=== PATIENT | male | born 1975 | race American Indian/Alaskan Native ===

== ENCOUNTER 2018-01-06 11:59 | Inpatient (IN) | payer OTHER ==
[2018-01-06] MEDS ORDERED: APRESOLINE ONE (12:28)
--- NOTE | 2018-01-06 12:31 | Cat Scan Report ---
CT scan of head without IV contrast: History: Neural deficit. Stroke protocol. Findings: Ventricles are midline in location. Normal in size. 3 mm focal area of low attenuation left basal ganglia. Ill-defined areas of low attenuation right posterior parietal region. 2 cm focal area of low attenuation right cerebellum. No evidence of hemorrhage. No extra-axial fluid collection. Impression: Focal areas of low attenuation as detailed above probably suggestive acute/subacute ischemia. No previous studies available for comparison. Recommend MRI scan for further evaluation. ER doctor, was informed of the findings at 12:25 PM on 01/06/18. [id number]
[2018-01-06 12:34] LABS: Basophils # (Auto) 0.1 K/mm3 (0.0-0.1); Basophils % (Auto) 1.1 % (0.0-1.8); Eosinophils # (Auto) 0.2 K/mm3 (0.0-0.4); Hematocrit 49.7 % (35.5-45.6); Hemoglobin 16.3 gm/dl (11.8-15.2); Lymphocytes # (Auto) 1.5 K/mm3 (1.2-5.4); Lymphocytes % (Auto) 26.3 % (13.4-35.0); Mean Corpuscular HGB Conc 33 % (32-34); Mean Corpuscular Hemoglobin 28 pg (28-32); Mean Corpuscular Volume 86 fl (84-94); Monocytes # (Auto) 0.4 K/mm3 (0.0-0.8); Monocytes % (Auto) 6.5 % (0.0-7.3); Platelet Count 239 K/mm3 (140-440); Red Blood Count 5.79 M/mm3 (3.65-5.03); Red Cell Distribution Width 13.4 % (13.2-15.2)
[2018-01-06] MEDS ORDERED: APRESOLINE IV ONE (12:42)
[2018-01-06 12:44] LABS: INR 0.84 (0.87-1.13)
[2018-01-06 12:45] LABS: BUN/Creatinine Ratio 9; Blood Urea Nitrogen 15 mg/dL (9-20); Calcium 9.2 mg/dL (8.4-10.2); Hemolysis Index 6; Partial Thromboplastin Time 25.7 Sec. (24.2-36.6)
--- NOTE | 2018-01-06 13:05 | Emergency Department Report ---
ED Neuro Deficit HPI - General Chief Complaint: Neuro Symptoms/Deficit Stated Complaint: NEURO SYMPTOMS Time Seen by Provider: 01/06/18 12:49 Source: patient Mode of arrival: Ambulatory Limitations: No Limitations - History of Present Illness Initial Comments: PT. CAME BACK FROM WORK AROUND 2 AM AND WENT TO SLEEP WAS NOT SEEN BY ANYONE AT HOME. HE WOKE UP THIS AM AND WAS BUMPING INTO THINGS ON THE LEFT SIDE AND HE COULD NOT SEE OUT OF THE LEFT EYE. -: Gradual Location: ataxia History of same: No Place: home Severity: moderate Improves With: none Worsens With: none On Anticoagulants: No (SUPPOSED TO BE OM PLAVIX AND ELIQUIS WHICH HE NOT FILLED FOR A MTH) Context: gradual onset Associated Symptoms: denies other symptoms - Related Data Allergies/Adverse Reactions: Allergies Allergy/AdvReac Type Severity Reaction Status Date / Time No Known Allergies Allergy Verified 01/06/18 12:34 ED Review of Systems ROS: Stated complaint: NEURO SYMPTOMS Other details as noted in HPI Comment: All other systems reviewed and negative ED Past Medical Hx - Past Medical History Previous Medical History?: Yes Hx Hypertension: Yes Hx CVA: Yes (TIA) Hx Heart Attack/AMI: Yes Hx Diabetes: Yes Additional medical history: CAD. BLOOD CLOT IN HIS LUNGS - Surgical History Past Surgical History?: Yes Hx Coronary Stent: Yes - Social History Smoking Status: Former Smoker Substance Use Type: Alcohol, Marijuana, Non Opiate Pain, Prescribed ED Neuro Physical Exam - General Limitations: No Limitations General appearance: alert, in no apparent distress - Head Head exam: Present: atraumatic, normocephalic - Eye Eye exam: Present: normal appearance - ENT ENT exam: Present: mucous membranes moist - Neck Neck exam: Present: normal inspection - Respiratory Respiratory exam: Present: normal lung sounds bilaterally. Absent: respiratory distress - Cardiovascular Cardiovascular Exam: Present: regular rate, normal rhythm. Absent: systolic murmur, diastolic murmur, rubs, gallop - GI/Abdominal GI/Abdominal exam: Present: soft, normal bowel sounds. Absent: tenderness - Rectal Rectal exam: Present: deferred - Extremities Exam Extremities exam: Present: normal inspection, full ROM - Back Exam Back exam: Present: normal inspection, full ROM - NIHSS Assessment Interval: Baseline 1a. Level of Consciousness: alert 1b. LOC Questions: answers correctly 1c. LOC Commands: performs tasks correctly 2. Best Gaze: normal 3. Visual: complete hemianopia 4. Facial Palsy: normal symmetrical movement 5b. Motor Arm Right: no drift 5a. Motor Arm Left: no drift 6a. Motor Leg Left: no drift 6b. Motor Leg Right: no drift 7. Limb Ataxia: absent 8. Sensory: normal 9. Best Language: no aphasia 10. Dysarthria: normal 11. Extinction/Inattention: no abnormality Total Score: 2 Stroke Severity: Minor Stroke - Psychiatric Psychiatric exam: Present: normal affect, normal mood - Skin Skin exam: Present: warm, dry, intact, normal color. Absent: rash ED Course Vital Signs 01/06/18 01/06/18 01/06/18 12:03 12:19 12:26 Temperature 98.5 F Pulse Rate 94 H 100 H Respiratory 18 Rate Blood Pressure 178/133 190/151 O2 Sat by Pulse 98 Oximetry 01/06/18 01/06/18 01/06/18 12:31 12:45 12:56 Temperature Pulse Rate 100 H 85 Respiratory 11 L 23 18 Rate Blood Pressure 190/151 187/136 O2 Sat by Pulse 97 94 Oximetry 01/06/18 01/06/18 01/06/18 13:01 13:15 13:30 Temperature Pulse Rate 107 H 105 H 97 H Respiratory 19 21 21 Rate Blood Pressure 169/123 168/139 164/119 O2 Sat by Pulse 97 97 Oximetry 01/06/18 01/06/18 01/06/18 13:45 14:00 14:15 Temperature Pulse Rate 104 H 96 H 99 H Respiratory 17 10 L 21 Rate Blood Pressure 157/117 155/114 150/108 O2 Sat by Pulse 96 96 95 Oximetry 01/06/18 01/06/18 14:30 14:45 Temperature Pulse Rate 103 H 106 H Respiratory 21 21 Rate Blood Pressure 159/116 164/120 O2 Sat by Pulse 95 96 Oximetry - Lab Data Result diagrams: 01/06/18 12:26 01/06/18 12:26 Lab Results 01/06/18 01/06/18 01/06/18 Range/Units 12:26 12:26 12:26 WBC 5.6 (4.5-11.0) K/mm3 RBC 5.79 H (3.65-5.03) M/mm3 Hgb 16.3 H (11.8-15.2) gm/dl Hct 49.7 H (35.5-45.6) % MCV 86 (84-94) fl MCH 28 (28-32) pg MCHC 33 (32-34) % RDW 13.4 (13.2-15.2) % Plt Count 239 (140-440) K/mm3 Lymph % (Auto) 26.3 (13.4-35.0) % [place] % (Auto) 6.5 (0.0-7.3) % Eos % (Auto) 4.0 (0.0-4.3) % Baso % (Auto) 1.1 (0.0-1.8) % Lymph # 1.5 (1.2-5.4) K/mm3 [place] # 0.4 (0.0-0.8) K/mm3 Eos # 0.2 (0.0-0.4) K/mm3 Baso # 0.1 (0.0-0.1) K/mm3 Seg Neutrophils % 62.1 (40.0-70.0) % Seg Neutrophils # 3.5 (1.8-7.7) K/mm3 PT 11.9 L (12.2-14.9) Sec. INR 0.84 L (0.87-1.13) APTT 25.7 (24.2-36.6) Sec. Thrombin Time (15.1-19.6) Sec. Sodium 139 (137-145) mmol/L Potassium 4.3 (3.6-5.0) mmol/L Chloride 99.2 (98-107) mmol/L Carbon Dioxide 25 (22-30) mmol/L Anion Gap 19 mmol/L BUN 15 (9-20) mg/dL Creatinine 1.6 H (0.8-1.5) mg/dL Estimated GFR 48 ml/min BUN/Creatinine Ratio 9 % Glucose 288 H (75-100) mg/dL Calcium 9.2 (8.4-10.2) mg/dL Troponin T < 0.010 (0.00-0.029) ng/mL Urine Color (Yellow) Urine Turbidity (Clear) Urine pH (5.0-7.0) Ur Specific [place] (1.003-1.030) Urine Protein (Negative) mg/dL Urine Glucose (UA) (Negative) mg/dL Urine Ketones (Negative) mg/dL Urine Blood (Negative) Urine Nitrite (Negative) Urine Bilirubin (Negative) Urine Urobilinogen (<2.0) mg/dL Ur Leukocyte Esterase (Negative) Urine WBC (Auto) (0.0-6.0) /HPF Urine RBC (Auto) (0.0-6.0) /HPF Urine Opiates Screen Urine Methadone Screen Ur Barbiturates Screen Ur Phencyclidine Scrn Ur Amphetamines Screen U Benzodiazepines Scrn Urine Cocaine Screen U Marijuana (THC) Screen Drugs of Abuse Note 01/06/18 01/06/18 01/06/18 Range/Units 12:26 13:12 13:12 WBC (4.5-11.0) K/mm3 RBC (3.65-5.03) M/mm3 Hgb (11.8-15.2) gm/dl Hct (35.5-45.6) % MCV (84-94) fl MCH (28-32) pg MCHC (32-34) % RDW (13.2-15.2) % Plt Count (140-440) K/mm3 Lymph % (Auto) (13.4-35.0) % [place] % (Auto) (0.0-7.3) % Eos % (Auto) (0.0-4.3) % Baso % (Auto) (0.0-1.8) % Lymph # (1.2-5.4) K/mm3 [place] # (0.0-0.8) K/mm3 Eos # (0.0-0.4) K/mm3 Baso # (0.0-0.1) K/mm3 Seg Neutrophils % (40.0-70.0) % Seg Neutrophils # (1.8-7.7) K/mm3 PT (12.2-14.9) Sec. INR (0.87-1.13) APTT (24.2-36.6) Sec. Thrombin Time 15.6 (15.1-19.6) Sec. Sodium (137-145) mmol/L Potassium (3.6-5.0) mmol/L Chloride (98-107) mmol/L Carbon Dioxide (22-30) mmol/L Anion Gap mmol/L BUN (9-20) mg/dL Creatinine (0.8-1.5) mg/dL Estimated GFR ml/min BUN/Creatinine Ratio % Glucose (75-100) mg/dL Calcium (8.4-10.2) mg/dL Troponin T (0.00-0.029) ng/mL Urine Color Yellow (Yellow) Urine Turbidity Clear (Clear) Urine pH 5.0 (5.0-7.0) Ur Specific [place] 1.014 (1.003-1.030) Urine Protein 100 mg/dl (Negative) mg/dL Urine Glucose (UA) >=500 (Negative) mg/dL Urine Ketones Neg (Negative) mg/dL Urine Blood Sm (Negative) Urine Nitrite Neg (Negative) Urine Bilirubin Neg (Negative) Urine Urobilinogen < 2.0 (<2.0) mg/dL Ur Leukocyte Esterase Neg (Negative) Urine WBC (Auto) < 1.0 (0.0-6.0) /HPF Urine RBC (Auto) 1.0 (0.0-6.0) /HPF Urine Opiates Screen Presumptive negative Urine Methadone Screen Presumptive negative Ur Barbiturates Screen Presumptive negative Ur Phencyclidine Scrn Presumptive negative Ur Amphetamines Screen Presumptive negative U Benzodiazepines Scrn Presumptive negative Urine Cocaine Screen Presumptive negative U Marijuana (THC) Screen Presumptive positive Drugs of Abuse Note Disclamer - EKG Data -: EKG Interpreted by Ms EKG shows normal: sinus rhythm (SINUS TACHYCARDIA RATE OF 105), axis (NORMAL), intervals (NORMAL), QRS complexes (NORMAL), ST-T waves (NORMAL) - Radiology Data Radiology results: report reviewed - Medical Decision Making I SPOKE TO tELENEUROLOGY dR Hale WHO ALSO LOOKED AT THE CT HEAD IMAGES AND GIVEN THE TIME OF ONSET FELT PATIENT IS NOT A CANDIDATE FOR TPA AND SAID CAN BE ADMITTED FOR STROKE WORKUP AND MRI HEAD. I SPOKE TO DR OMNTANEZ WHO ACCEPTED THE PATIENT FOR ADMISSION Critical care attestation.: If time is entered above; I have spent that time in minutes in the direct care of this critically ill patient, excluding procedure time. ED Disposition Clinical Impression: CVA (cerebral vascular accident) Disposition: -09 OP ADMIT IP TO THIS HOSP Is pt being admited?: Yes Does the pt Need Aspirin: Yes Condition: Stable
[2018-01-06 13:27] LABS: Bilirubin,Urine NEG (Negative); Blood,Urine SM (Negative); Color,Urine Yellow (Yellow); Urobilinogen,Urine < 2.0 mg/dL (<2.0); WBC,Urine < 1.0 /HPF (0.0-6.0)
[2018-01-06 13:35] LABS: Amphetamine Screen,Urine PRESUMPTIVE NEGATIVE; Benzodiazepines Screen,Urine PRESUMPTIVE NEGATIVE; Cocaine Screen,Urine PRESUMPTIVE NEGATIVE; Methadone Screen,Urine PRESUMPTIVE NEGATIVE; Opiate Screen,Urine PRESUMPTIVE NEGATIVE
[2018-01-06 13:49] LABS: Cannabinoid Screen,Urine PRESUMPTIVE POSITIVE
[2018-01-06] MEDS ORDERED: BABY ASPIRIN PO SCH (16:00)
--- NOTE | 2018-01-06 16:32 | History and Physical Report ---
History of Present Illness Date of examination: 01/06/18 Date of admission: 01/06/18 14:32 Chief complaint: CC Unsteady while walking and Unable to see left yi History of present illness: History of Present Illness: PT. CAME BACK FROM WORK AROUND 2 AM AND WENT TO SLEEP AND WAS NOT SEEN BY ANYONE AT HOME. HE WOKE UP THIS AM AND WAS BUMPING INTO THINGS ON THE LEFT SIDE AND HE COULD NOT SEE OUT OF THE LEFT EYE. He is still not able to see on the leftside during my exam Past Medical History Previous Medical History?: Yes Hypertension: Yes CVA: Yes (TIA) Heart Attack/AMI: Yes Diabetes: Yes Additional medical history: CAD. BLOOD CLOT IN HIS LUNGS Surgical History Past Surgical History?: Yes Hx Coronary Stent: Yes Social History Smoking Status: Former Smoker Substance Use Type: Alcohol, Marijuana, Non Opiate Pain, Prescribed Family History Htn Medications and Allergies Allergies Allergy/AdvReac Type Severity Reaction Status Date / Time No Known Allergies Allergy Verified 01/06/18 12:34 Active Meds: Active Medications Aspirin (Baby Aspirin) 324 mg PO QDAY [facility] Last Admin: 01/06/18 15:33 Dose: 324 mg Enoxaparin Sodium (Lovenox) 40 mg SUB-Q QDAY [facility] Review of Systems All systems: negative Constitutional: no weight loss, no weight gain, no fever, no chills Eyes: left: blurred vision, diplopia, decreased vision, loss of peripheral vision Ears, nose, mouth and throat: no sore throat, no swelling in mouth, no swelling in throat, no odynophagia Cardiovascular: no chest pain, no orthopnea, no palpitations, no rapid/ irregular heart beat, no edema, no syncope, no lightheadedness, no shortness of breath Respiratory: no cough, no cough with sputum, no excessive sputum, no hemoptysis , no shortness of breath, no dyspnea on exertion Gastrointestinal: no abdominal pain, no nausea, no vomiting, no diarrhea, no constipation, no change in bowel habits, no hematemesis, no coffee ground emesis Genitourinary Male: no dysuria, no flank pain, no urinary frequency, no urinary hesitancy, no nocturia, no incontinence Rectal: no pain Musculoskeletal: no neck stiffness, no neck pain, no shooting arm pain, no arm numbness/tingling, no low back pain, no shooting leg pain, no leg numbness/ tingling Integumentary: no rash, no pruritis, no redness, no sores, no wounds, no jaundice, no boils Neurological: ataxia, lack of coordination, balance difficulties, gait dysfunction, loss of vision, no head injury, no transient paralysis, no paralysis, no weakness, no parathesias, no numbness, no tingling, no seizures, no syncope, no tremors Psychiatric: no anxiety, no memory loss, no change in sleep habits, no sleep disturbances, no insomnia, no hypersomnia Endocrine: no cold intolerance, no heat intolerance, no polyphagia, no excessive thirst Hematologic/Lymphatic: no easy bruising, no easy bleeding Allergic/Immunologic: no urticaria, no allergic rhinitis, no wheezing Exam - Constitutional Vitals: Temp Pulse Resp BP Pulse Ox 98.5 F 98 H 13 182/138 98 01/06/18 12:03 01/06/18 16:15 01/06/18 16:15 01/06/18 16:15 01/06/18 16:15 General appearance: Present: no acute distress, well-nourished - EENT Eyes: Present: PERRL ENT: hearing intact, clear oral mucosa - Neck Neck: Present: supple, normal ROM - Respiratory Respiratory effort: normal Respiratory: bilateral: CTA - Cardiovascular Heart Sounds: Present: S1 & S2. Absent: rub, click - Extremities Extremities: pulses symmetrical, No edema Peripheral Pulses: within normal limits - Abdominal General gastrointestinal: Present: soft, non-tender, non-distended, normal bowel sounds Male genitourinary: Present: normal - Integumentary Integumentary: Present: clear, warm, dry - Musculoskeletal Musculoskeletal: gait normal, strength equal bilaterally - Psychiatric Psychiatric: appropriate mood/affect, intact judgment & insight - Neurologic Neurologic: CNII-XII intact, focal deficits (L Hemianopia on field testing), moves all extremities, other (Gait ataxic) Results - Labs CBC & Chem 7: 01/07/18 04:59 01/07/18 04:59 Labs: Laboratory Last Values WBC 5.6 K/mm3 (4.5-11.0) 01/06/18 12:26 RBC 5.79 M/mm3 (3.65-5.03) H 01/06/18 12:26 Hgb 16.3 gm/dl (11.8-15.2) H 01/06/18 12: Hct 49.7 % (35.5-45.6) H 01/06/18 12: MCV 86 fl (84-94) 01/06/18 12: MCH 28 pg (28-32) 01/06/18 12: MCHC 33 % (32-34) 01/06/18 12: RDW 13.4 % (13.2-15.2) 01/06/18 12: Plt Count 239 K/mm3 (140-440) 01/06/18 12: Lymph % (Auto) 26.3 % (13.4-35.0) 01/06/18 12: [place] % (Auto) 6.5 % (0.0-7.3) 01/06/18 12: Eos % (Auto) 4.0 % (0.0-4.3) 01/06/18: Baso % (Auto) 1.1 % (0.0-1.8) 01/06/18 12: Lymph # 1.5 K/mm3 (1.2-5.4) 01/06/18 12: [place] # 0.4 K/mm3 (0.0-0.8) 01/06/18 12: Eos # 0.2 K/mm3 (0.0-0.4) 01/06/18 12: Baso # 0.1 K/mm3 (0.0-0.1) 01/06/18: Seg Neutrophils % 62.1 % (40.0-70.0) 01/06/18 12: Seg Neutrophils # 3.5 K/mm3 (1.8-7.7) 01/06/18 12: PT 11.9 Sec. (12.2-14.9) L 01/06/18 12: INR 0.84 (0.87-1.13) L 01/06/18 12: APTT 25.7 Sec. (24.2-36.6) 01/06/18 12: Thrombin Time 15.6 Sec. (15.1-19.6) 01/06/18 12: Sodium 139 mmol/L (137-145) 03/18/18 12:26 Potassium 4.3 mmol/L (3.6-5.0) 01/06/18 12:26 Chloride 99.2 mmol/L (98-107) 01/06/18 12:26 Carbon Dioxide 25 mmol/L (22-30) 01/06/18 12:26 Anion Gap 19 mmol/L 01/06/18 12:26 BUN 15 mg/dL (9-20) 01/06/18 12:26 Creatinine 1.6 mg/dL (0.8-1.5) H 01/06/18 12:26 Estimated GFR 48 ml/min 01/06/18 12:26 BUN/Creatinine Ratio 9 % 01/06/18 12:26 Glucose 288 mg/dL (75-100) H 01/06/18 12:26 Calcium 9.2 mg/dL (8.4-10.2) 01/06/18 12:26 Troponin T < 0.010 ng/mL (0.00-0.029) 01/06/18 12:26 Urine Color Yellow (Yellow) 01/06/18 13:12 Urine Turbidity Clear (Clear) 01/06/18 13:12 Urine pH 5.0 (5.0-7.0) 01/06/18 13:12 Ur Specific [place] 1.014 (1.003-1.030) 01/06/18 13:12 Urine Protein 100 mg/dl mg/dL (Negative) 01/06/18 13:12 Urine Glucose (UA) >=500 mg/dL (Negative) 01/06/18 13:12 Urine Ketones Neg mg/dL (Negative) 01/06/18 13:12 Urine Blood Sm (Negative) 01/06/18 13:12 Urine Nitrite Neg (Negative) 01/06/18 13:12 Urine Bilirubin Neg (Negative) 01/06/18 13:12 Urine Urobilinogen < 2.0 mg/dL (<2.0) 01/06/18 13:12 Ur Leukocyte Esterase Neg (Negative) 01/06/18 13:12 Urine WBC (Auto) < 1.0 /HPF (0.0-6.0) 01/06/18 13:12 Urine RBC (Auto) 1.0 /HPF (0.0-6.0) 01/06/18 13:12 Urine Opiates Screen Presumptive negative 01/06/18 13:12 Urine Methadone Screen Presumptive negative 01/06/18 13:12 Ur Barbiturates Screen Presumptive negative 01/06/18 13:12 Ur Phencyclidine Scrn Presumptive negative 01/06/18 13:12 Ur Amphetamines Screen Presumptive negative 01/06/18 13:12 U Benzodiazepines Scrn Presumptive negative 01/06/18 13:12 Urine Cocaine Screen Presumptive negative 01/06/18 13:12 U Marijuana (THC) Screen Presumptive positive 01/06/18 13:12 Drugs of Abuse Note Disclamer 01/06/18 13:12 - Imaging and Cardiology EKG: report reviewed Chest x-ray: report reviewed CT Scan - head: report reviewed (2cm focal area of attenuation Rt cerebellar region) Assessment and Plan Advance Directives: Yes (Full code) VTE prophylaxis?: Chemical Plan of care discussed with patient/family: Yes - Patient Problems (1) CVA (cerebral vascular accident) Current Visit: Yes Status: Acute Qualifiers: CVA mechanism: thrombosis Precerebral and cerebral artery: cerebellar artery Laterality of affected vessel: right Qualified Code(s): I63.341 - 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 Plan to address problem: Clinical pictre c/w CVA Patient Ataxic-cerebellar stroke Out of window period forTPA Stroke w/u involving MRI MRA CDS and ECHO Neuro consult requested (2) HTN (hypertension) Current Visit: Yes Status: Chronic Qualifiers: Hypertension type: essential hypertension Qualified Code(s): I10 - Essential (primary) hypertension Plan to address problem: Initiated on Losartan and coreg (3) T2DM (type 2 diabetes mellitus) Current Visit: Yes Status: Chronic Qualifiers: Diabetes mellitus superintendent marine oil terminal insulin use: without superintendent marine oil terminal use Plan to address problem: Initiated on Amaryl and Metformin (4) CAD (coronary artery disease) Current Visit: Yes Status: Chronic Qualifiers: Coronary Disease-Associated Artery/Lesion type: [place] artery Plan to address problem: Initiated on Eliquis (5) Pulmonary embolism Current Visit: Yes Status: Inactive Qualifiers: Chronicity: unspecified Acute cor pulmonale presence: without acute cor pulmonale Plan to address problem: Gont Eliquis (6) DVT prophylaxis Current Visit: Yes Status: Acute Plan to address problem: On Heparin
[2018-01-06] MEDS ORDERED: TYLENOL PO PRN (16:33)
[2018-01-06] MEDS ORDERED: ZOFRAN IV PRN (16:33)
[2018-01-06] MEDS ORDERED: DILAUDID IV PRN (16:33)
[2018-01-06] MEDS ORDERED: REGLAN PO PRN (16:33)
[2018-01-06] MEDS ORDERED: SODIUM CHLORIDE FLUSH SYRINGE 10 ML IV PRN (16:33)
[2018-01-06] MEDS ORDERED: SODIUM CHLORIDE FLUSH SYRINGE 10 ML INJ PRN (16:41)
[2018-01-06] MEDS ORDERED: MORPHINE IV PRN (16:52)
[2018-01-06] MEDS ORDERED: NACL 0.45% 1000 ML 1,000 ML IV SCH (17:00)
[2018-01-06] MEDS: HumaLOG SUB-Q SCH ×2 (17:00→21:49)
[2018-01-06] MEDS: APRESOLINE IV PRN ×2 (17:03→22:29)
[2018-01-06] MEDS: HEPARIN SUB-Q SCH (21:48)
[2018-01-06] MEDS: SODIUM CHLORIDE FLUSH SYRINGE 10 ML IV SCH (21:49)
[2018-01-07] MEDS: APRESOLINE IV PRN ×3 (01:55→17:51)
[2018-01-07] MEDS: PERCOCET 5/325 PO PRN ×3 (01:56→23:02)
[2018-01-07] MEDS: RESTORIL PO PRN (02:19)
[2018-01-07 05:39] LABS: Basophils # (Auto) 0.1 K/mm3 (0.0-0.1); Basophils % (Auto) 0.7 % (0.0-1.8); Eosinophils % (Auto) 0.3 % (0.0-4.3); Hematocrit 49.9 % (35.5-45.6); Hemoglobin 16.5 gm/dl (11.8-15.2); Mean Corpuscular HGB Conc 33 % (32-34); Mean Corpuscular Hemoglobin 29 pg (28-32); Mean Corpuscular Volume 86 fl (84-94); Monocytes # (Auto) 0.4 K/mm3 (0.0-0.8); Monocytes % (Auto) 5.4 % (0.0-7.3); Platelet Count 239 K/mm3 (140-440); Red Blood Count 5.79 M/mm3 (3.65-5.03); Red Cell Distribution Width 13.2 % (13.2-15.2)
[2018-01-07 06:06] LABS: Alanine Aminotransferase 16 units/L (7-56); BUN/Creatinine Ratio 8; Blood Urea Nitrogen 11 mg/dL (9-20); Calcium 9.2 mg/dL (8.4-10.2); Chol/HDL Ratio 7.38 %; HDL Cholesterol 34 mg/dL (40-59); Hemolysis Index 79
[2018-01-07] MEDS: HEPARIN SUB-Q SCH (06:27)
[2018-01-07 07:22] LABS: LDL Cholesterol,Direct 205 mg/dL (50-130)
[2018-01-07] MEDS ORDERED: AMARYL PO SCH (08:00)
[2018-01-07] MEDS ORDERED: ASPIRIN PO SCH (10:00)
[2018-01-07] MEDS ORDERED: LOVENOX SUB-Q SCH (10:00)
[2018-01-07] MEDS ORDERED: ELIQUIS PO SCH (10:00)
[2018-01-07] MEDS: HumaLOG SUB-Q SCH ×4 (11:31→23:03)
--- NOTE | 2018-01-07 11:38 | Magnetic Resonance Report ---
MRI BRAIN WITHOUT CONTRAST: 01/07/18 CLINICAL: Stroke. COMPARISON: 01/06/18 CT Head TECHNIQUE: Axial diffusion, T1, T2, FLAIR, gradient echo T2*, and sagittal T1 sequences on a 1.5 [place] magnet. FINDINGS: The ventricles and sulci are normal for age. A large area of restricted diffusion involves all of the medial occipital lobe and extends to involve the splenium of the corpus callosum and the right thalamus. Focal restricted diffusion in the right cerebellum measures 2.0 cm. There is mass effect with gyral swelling and sulcal effacement of the occipital lobe. Very mild focal hypointensities on the gradient echo sequence are identified in the cerebellar lesion and are indicative of acute hemorrhage. No evidence of hemorrhage complicating the other areas of infarction. Extensive bilateral multifocal subcortical and periventricular white matter hyperintensities on FLAIR and T2. Linear areas of encephalomalacia involve right posterior parietal white matter and correlate with hypodensities on CT. The largest measures approximately 2 cm in the right posterior occipital lobe. Absent right posterior cerebral artery flow void. The rest of the flow voids are intact. Normal pituitary and sella. The brainstem is normal. Mild bilateral maxillary sinusitis with mucoperiosteal thickening. No air-fluid levels in the sinuses. The skull base and calvarium are intact. IMPRESSION: 1. Acute large nonhemorrhagic infarcts involving the right occipital lobe, splenium of the corpus callosum and right thalamus. 2. An acute 2 cm right superior cerebellar infarct with evidence of mild petechial hemorrhage. 3. Extensive bilateral chronic white matter microangiopathy. 4. Chronic right parietal lobe white matter infarcts.
[2018-01-07] MEDS: COZAAR PO SCH (11:39)
[2018-01-07] MEDS: GLUCOPHAGE XR PO SCH (11:39)
[2018-01-07] MEDS: PLAVIX PO SCH (11:39)
[2018-01-07] MEDS: COREG PO SCH ×2 (11:40→22:59)
--- NOTE | 2018-01-07 11:41 | Magnetic Resonance Report ---
MRA HEAD WITHOUT CONTRAST: 01/07/18 CLINICAL: Stroke. TECHNIQUE: Axial 3-D [id number] MR angiography of the [place] with review of axial source images. FINDINGS: Intact bilateral carotid arteries and intact bilateral ALEJO and MCA. Occlusion of the proximal right RADIAL SAW OPERATOR a few centimeters from its origin. The superior cerebellar arteries are intact. Intact basilar and vertebral arteries with a dominant left vertebral artery. No aneurysm. IMPRESSION: Right RADIAL SAW OPERATOR occlusion.
[2018-01-07] MEDS: SODIUM CHLORIDE FLUSH SYRINGE 10 ML IV SCH ×2 (11:43→23:04)
--- NOTE | 2018-01-07 11:50 | Consultation ---
History of Present Illness Consult date: 01/07/18 Consult reason: known to you, other (Apical thrombus) History of present illness: This is a 42yr old male admitted with acute CVA. Patient is known to [facility]. and has history of coronary artery disease, ischemic cardiomyopathy and apical thrombus. His most recent cardiac workup was done at [facility] 6 months ago. A cardiac cath reports a patent LAD stent. An echocardiogram showed an apical thrombus measuring 2.1 x 1.2 cm. Decreased left ventricular systolic function ejection fraction 25-30%. Patient was recommended eliquis for oral anticoagulation therapy which he is receiving samples from our office but admits to noncompliance with all his medications. Medications and Allergies Allergies Allergy/AdvReac Type Severity Reaction Status Date / Time No Known Allergies Allergy Verified 01/06/18 12:34 Active Meds: Active Medications Acetaminophen (Tylenol) 650 mg PO Q4H PRN PRN Reason: Pain MILD(1-3)/Fever >100.5/TEJADA Last Admin: 01/06/18 20:22 Dose: 650 mg Carvedilol (Coreg) 6.25 mg PO BID [facility] Last Admin: 01/07/18 11:40 Dose: 6.25 mg Clopidogrel Bisulfate (Plavix) 75 mg PO QDAY [facility] Last Admin: 01/07/18 11:39 Dose: 75 mg Hydralazine HCl (Apresoline) 10 mg IV Q3H PRN PRN Reason: Blood Pressure Last Admin: 01/07/18 06:27 Dose: 10 mg Hydromorphone HCl (Dilaudid) 0.5 mg IV Q3H PRN PRN Reason: Pain , Severe (7-10) Sodium Chloride (Nacl 0.45% 1000 Ml) 1,000 mls @ 42 mls/hr IV DIRECT [facility] Last Admin: 01/06/18 21:50 Dose: 42 mls/hr Insulin Human Lispro (Humalog) 0 unit SUB-Q ACHS [facility]; Protocol Last Admin: 01/07/18 11:41 Dose: 3 unit Losartan Potassium (Cozaar) 100 mg PO QDAY [facility] Last Admin: 01/07/18 11:39 Dose: 100 mg Metformin HCl (Glucophage Xr) 500 mg PO QDDIAB [facility] Last Admin: 01/07/18 11:39 Dose: 500 mg Metoclopramide HCl (Reglan) 10 mg PO Q6H PRN PRN Reason: Nausea And Vomiting Morphine Sulfate (Morphine) 2 mg IV Q4H PRN PRN Reason: Pain , MODERATE (4-6) Ondansetron HCl (Zofran) 4 mg IV Q8H PRN PRN Reason: Nausea And Vomiting Oxycodone/Acetaminophen (Percocet 5/325) 1 tab PO Q6H PRN PRN Reason: Pain, Moderate (4-6) Last Admin: 01/07/18 01:56 Dose: 1 tab Sodium Chloride (Sodium Chloride Flush Syringe 10 Ml) 10 ml IV BID [facility] Last Admin: 01/07/18 11:43 Dose: 10 ml Sodium Chloride (Sodium Chloride Flush Syringe 10 Ml) 10 ml IV PRN PRN PRN Reason: LINE FLUSH Temazepam (Restoril) 15 mg PO QHS PRN PRN Reason: Sleep Last Admin: 01/07/18 02:19 Dose: 15 mg Physical Examination Vital Signs Temp Pulse Resp BP Pulse Ox 98.5 F 94 H 18 178/133 98 01/06/18 12:03 01/06/18 12:03 01/06/18 12:03 01/06/18 12:03 01/06/18 12:03 General appearance: no acute distress Cardiac: Positive: Reg Rate and Rhythm Lungs: Positive: Decreased Breath Sounds Neuro: Positive: Grossly Intact Results 01/07/18 04:59 01/07/18 04:59 Cardiac Enzymes 01/07/18 Range/Units 04:59 AST 21 (5-40) units/L Coagulation 01/06/18 Range/Units 12:26 PT 11.9 L (12.2-14.9) Sec. INR 0.84 L (0.87-1.13) APTT 25.7 (24.2-36.6) Sec. Lipids 01/07/18 Range/Units 04:59 Triglycerides 176 H (2-149) mg/dL Cholesterol 251 H (50-199) mg/dL HDL Cholesterol 34 L (40-59) mg/dL Cholesterol/HDL Ratio 7.38 % CBC 01/06/18 01/07/18 Range/Units 12:26 04:59 WBC 5.6 8.0 (4.5-11.0) K/mm3 RBC 5.79 H 5.79 H (3.65-5.03) M/mm3 Hgb 16.3 H 16.5 H (11.8-15.2) gm/dl Hct 49.7 H 49.9 H (35.5-45.6) % Plt Count 239 239 (140-440) K/mm3 Lymph # 1.5 1.0 L (1.2-5.4) K/mm3 [place] # 0.4 0.4 (0.0-0.8) K/mm3 Eos # 0.2 0.0 (0.0-0.4) K/mm3 Baso # 0.1 0.1 (0.0-0.1) K/mm3 Comprehensive Metabolic Panel 01/06/18 01/07/18 Range/Units 12:26 04:59 Sodium 139 138 (137-145) mmol/L Potassium 4.3 4.2 (3.6-5.0) mmol/L Chloride 99.2 97.2 L (98-107) mmol/L Carbon Dioxide 25 22 (22-30) mmol/L BUN 15 11 (9-20) mg/dL Creatinine 1.6 H 1.4 (0.8-1.5) mg/dL Glucose 288 H 299 H (75-100) mg/dL Calcium 9.2 9.2 (8.4-10.2) mg/dL AST 21 (5-40) units/L ALT 16 (7-56) units/L Alkaline Phosphatase 73 (35-129) units/L Total Protein 6.7 (6.3-8.2) g/dL Albumin 4.0 (3.9-5) g/dL Assessment and Plan Acute CVA Hypertension Ischemic Cardiomyopathy, EF 25-30% Hx of CAD [facility] 06/2017: patent LAD stent. Hx of Apical thrombus noncompliant with eliquis therapy Diabetes mellitus
[2018-01-07] MEDS: ELIQUIS PO SCH ×2 (13:32→23:03)
--- NOTE | 2018-01-07 13:34 | Progress Note ---
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 Follow-up on current diagnosis of AMS. Overnight uneventful. Patient denies any chest pain, shortness breath, nausea/ vomiting or severe headaches. Imaging, nursing note, chart, labs and old chart reviewed. Discussed with patient. Hospitalist Physical - Physical exam Narrative exam: GEN: WDWN, NAD, AWAKE, ALERT, ORIENTATED x3 HEENT: NCAT, EOMI, PERRL, OP Clear NECK: supple, no adenopathy, no thyromegaly, no JVD CVS/HEART: RRR, NORMAL S1S2, pulses present bilaterally CHEST/LUNGS: CTA B, Symmetrical chest expansion, good air entry bilaterally GI/Abdomen: soft, NTND, good bowel sounds, no guarding or rebound /Bladder: no suprapubic tenderness, no CVA or paraspinal tenderness EXT/Skin: no c/c/e, no obvious rash MSK: FROM x 4 Neuro: CN 2-12 grossly intact, pinpoint abn, gait abn, dysmetria Psych: calm - Constitutional Vitals: Temp Pulse Resp BP Pulse Ox 98.5 F 112 H 18 161/114 96 01/07/18 13:02 01/07/18 13:02 01/07/18 13:02 01/07/18 13:02 01/07/18 13:02 General appearance: Present: no acute distress Results - Labs CBC & Chem 7: 01/07/18 04:59 01/07/18 04:59 Labs: Laboratory Last Values WBC 8.0 K/mm3 (4.5-11.0) 01/07/18 04:59 RBC 5.79 M/mm3 (3.65-5.03) H 01/07/18 04:59 Hgb 16.5 gm/dl (11.8-15.2) H 01/07/18 04:59 Hct 49.9 % (35.5-45.6) H 01/07/18 04:59 MCV 86 fl (84-94) 01/07/18 04:59 MCH 29 pg (28-32) 01/07/18 04:59 MCHC 33 % (32-34) 01/07/18 04:59 RDW 13.2 % (13.2-15.2) 01/07/18 04:59 Plt Count 239 K/mm3 (140-440) 01/07/18 04:59 Lymph % (Auto) 12.0 % (13.4-35.0) L 01/07/18 04:59 [place] % (Auto) 5.4 % (0.0-7.3) 01/07/18 04:59 Eos % (Auto) 0.3 % (0.0-4.3) 01/07/18 04:59 Baso % (Auto) 0.7 % (0.0-1.8) 01/07/18 04:59 Lymph # 1.0 K/mm3 (1.2-5.4) L 01/07/18 04:59 [place] # 0.4 K/mm3 (0.0-0.8) 01/07/18 04:59 Eos # 0.0 K/mm3 (0.0-0.4) 01/07/18 04:59 Baso # 0.1 K/mm3 (0.0-0.1) 01/07/18 04:59 Seg Neutrophils % 81.6 % (40.0-70.0) H 01/07/18 04:59 Seg Neutrophils # 6.5 K/mm3 (1.8-7.7) 01/07/18 04:59 PT 11.9 Sec. (12.2-14.9) L 01/06/18 12:26 INR 0.84 (0.87-1.13) L 01/06/18 12:26 APTT 25.7 Sec. (24.2-36.6) 01/06/18 12:26 Thrombin Time 15.6 Sec. (15.1-19.6) 01/06/18 12:26 Sodium 138 mmol/L (137-145) 01/07/18 04:59 Potassium 4.2 mmol/L (3.6-5.0) 01/07/18 04:59 Chloride 97.2 mmol/L (98-107) L 01/07/18 04:59 Carbon Dioxide 22 mmol/L (22-30) 01/07/18 04:59 Anion Gap 23 mmol/L 01/07/18 04:59 BUN 11 mg/dL (9-20) 01/07/18 04:59 Creatinine 1.4 mg/dL (0.8-1.5) 01/07/18 04:59 Estimated GFR > 60 ml/min 01/07/18 04:59 BUN/Creatinine Ratio 8 % 01/07/18 04:59 Glucose 299 mg/dL (75-100) H 01/07/18 04:59 POC Glucose 245 (70-105) H 01/07/18 11:22 Hemoglobin A1c 8.7 % (4-6) H 01/06/18 12:26 Calcium 9.2 mg/dL (8.4-10.2) 01/07/18 04:59 Total Bilirubin 0.90 mg/dL (0.1-1.2) 01/07/18 04:59 AST 21 units/L (5-40) 01/07/18 04:59 ALT 16 units/L (7-56) 01/07/18 04:59 Alkaline Phosphatase 73 units/L (35-129) 01/07/18 04:59 Troponin T < 0.010 ng/mL (0.00-0.029) 01/06/18 12:26 Total Protein 6.7 g/dL (6.3-8.2) 01/07/18 04:59 Albumin 4.0 g/dL (3.9-5) 01/07/18 04:59 Albumin/Globulin Ratio 1.5 % 01/07/18 04:59 Triglycerides 176 mg/dL (2-149) H 01/07/18 04:59 Cholesterol 251 mg/dL (50-199) H 01/07/18 04:59 LDL Cholesterol Direct 205 mg/dL (50-130) H 01/07/18 04:59 HDL Cholesterol 34 mg/dL (40-59) L 01/07/18 04:59 Cholesterol/HDL Ratio 7.38 % 01/07/18 04:59 Urine Color Yellow (Yellow) 01/06/18 13:12 Urine Turbidity Clear (Clear) 01/06/18 13:12 Urine pH 5.0 (5.0-7.0) 01/06/18 13:12 Ur Specific [place] 1.014 (1.003-1.030) 01/06/18 13:12 Urine Protein 100 mg/dl mg/dL (Negative) 01/06/18 13:12 Urine Glucose (UA) >=500 mg/dL (Negative) 01/06/18 13:12 Urine Ketones Neg mg/dL (Negative) 01/06/18 13:12 Urine Blood Sm (Negative) 01/06/18 13:12 Urine Nitrite Neg (Negative) 01/06/18 13:12 Urine Bilirubin Neg (Negative) 01/06/18 13:12 Urine Urobilinogen < 2.0 mg/dL (<2.0) 01/06/18 13:12 Ur Leukocyte Esterase Neg (Negative) 01/06/18 13:12 Urine WBC (Auto) < 1.0 /HPF (0.0-6.0) 01/06/18 13:12 Urine RBC (Auto) 1.0 /HPF (0.0-6.0) 01/06/18 13:12 Urine Opiates Screen Presumptive negative 01/06/18 13:12 Urine Methadone Screen Presumptive negative 01/06/18 13:12 Ur Barbiturates Screen Presumptive negative 01/06/18 13:12 Ur Phencyclidine Scrn Presumptive negative 01/06/18 13:12 Ur Amphetamines Screen Presumptive negative 01/06/18 13:12 U Benzodiazepines Scrn Presumptive negative 01/06/18 13:12 Urine Cocaine Screen Presumptive negative 01/06/18 13:12 U Marijuana (THC) Screen Presumptive positive 01/06/18 13:12 Drugs of Abuse Note Disclamer 01/06/18 13:12
--- NOTE | 2018-01-07 20:52 | Consultation ---
History of Present Illness Consult date: 01/07/18 Requesting physician: ARUNA MONTANEZ Reason for Consult: stroke Chief complaint: loss of vision left eye History of present illness: This 42-year-old right-handed -English male straightening at 10 AM on awakening noted he could not see out of his left eye. He has had some frontal headache since and without nausea. He was noted to have a left field cut. CT showed what seemed to be an old right cerebellar infarct and possibly hypodensity in the right occipital lobe. MRI shows acute cerebellar infarct on the right as well as acute right occipital lobe infarct extending into corpus callosum posteriorly and FLAIR showed older embolic appearing frontal parietal small strokes. MRA of head showed blocked right MAMMA LOGIST. He was aware of previous strokes. He states he has not been able to afford Eliquis but has been getting samples of it from the cardiology office. He has been taking 81 mg aspirin about every other day, and was taking Plavix generic. Past History Past Medical History: diabetes, hypertension, stroke (2 years ago affecting his walking and making the right side of his face numb), other (taking black seed oil at times). denies: DVT (says he is had only the cardiac thrombus, not pulmonary embolus or DVT), pulmonary embolism Social history: smoking (as one pack per day but less now), alcohol abuse (no alcohol), other (marijuana as recently as 2 days ago but no other illicit drugs. 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) Family history: diabetes (both maternal grandparents), hypertension (other and maternal grandmother), stroke (maternal grandmother), other (negative for epilepsy) Medications and Allergies Allergies Allergy/AdvReac Type Severity Reaction Status Date / Time No Known Allergies Allergy Verified 01/06/18 12:34 Active Meds: Active Medications Acetaminophen (Tylenol) 650 mg PO Q4H PRN PRN Reason: Pain MILD(1-3)/Fever >100.5/TEJADA Last Admin: 01/06/18 20:22 Dose: 650 mg Apixaban (Eliquis) 5 mg PO Q12HR [facility]; Protocol Last Admin: 01/07/18 13:32 Dose: 5 mg Atorvastatin Calcium (Lipitor) 80 mg PO QHS [facility] Carvedilol (Coreg) 6.25 mg PO BID [facility] Last Admin: 01/07/18 11:40 Dose: 6.25 mg Clopidogrel Bisulfate (Plavix) 75 mg PO QDAY [facility] Last Admin: 01/07/18 11:39 Dose: 75 mg Hydralazine HCl (Apresoline) 10 mg IV Q3H PRN PRN Reason: Blood Pressure Last Admin: 01/07/18 17:51 Dose: 10 mg Hydromorphone HCl (Dilaudid) 0.5 mg IV Q3H PRN PRN Reason: Pain , Severe (7-10) Insulin Human Lispro (Humalog) 0 unit SUB-Q ACHS [facility]; Protocol Last Admin: 01/07/18 17:53 Dose: 3 unit Losartan Potassium (Cozaar) 100 mg PO QDAY [facility] Last Admin: 01/07/18 11:39 Dose: 100 mg Metformin HCl (Glucophage Xr) 500 mg PO QDDIAB [facility] Last Admin: 01/07/18 11:39 Dose: 500 mg Metoclopramide HCl (Reglan) 10 mg PO Q6H PRN PRN Reason: Nausea And Vomiting Morphine Sulfate (Morphine) 2 mg IV Q4H PRN PRN Reason: Pain , MODERATE (4-6) Ondansetron HCl (Zofran) 4 mg IV Q8H PRN PRN Reason: Nausea And Vomiting Oxycodone/Acetaminophen (Percocet 5/325) 1 tab PO Q6H PRN PRN Reason: Pain, Moderate (4-6) Last Admin: 01/07/18 17:53 Dose: 1 tab Sodium Chloride (Sodium Chloride Flush Syringe 10 Ml) 10 ml IV BID [facility] Last Admin: 01/07/18 11:43 Dose: 10 ml Sodium Chloride (Sodium Chloride Flush Syringe 10 Ml) 10 ml IV PRN PRN PRN Reason: LINE FLUSH Temazepam (Restoril) 15 mg PO QHS PRN PRN Reason: Sleep Last Admin: 01/07/18 02:19 Dose: 15 mg Review of Systems All systems: negative (dizziness 2 weeks ago described as vertigo just for 2 seconds. Some snoring and pauses, sometimes but not dozing off, sometimes sleepy driving, memory okay.) Physical Examination - Vital Signs Vital Signs: Vital Signs Temp Pulse Resp BP Pulse Ox 98.5 F 94 H 18 178/133 98 01/06/18 12:03 01/06/18 12:03 01/06/18 12:03 01/06/18 12:03 01/06/18 12:03 - Physical Exam Narrative exam: General Appearance: well developed borderline obese (per BMI) early 40s - English male in NAD. HEENT: atraumatic, normocephalic; no bruits, 2+ Coco without soreness or induration or enlargement, sclerae nonicteric. Oropharynx pink and moist. Neck: supple, no bruits. Heart: no murmur or extra sounds. Extremities: no clubbing, cyanosis or edema. 2+ posterior tibial pulses bilaterally. Neurologic Exam: Mental Status: Awake, alert, oriented X 3, speech is clear, names pen and clip but not tip of pen, abstracts well. Names President and Preschool Teacher'S Assistant, serial 7's with one error, no right-left confusion, gets 3 of 3 objects at 3 minutes, spells WORLD backwards with one transposition. Cranial Nerves: Left homonymous hemianopia, no papilledema, SVPs present, PERRLA large pupils 3 mm reacting sluggishly to light but better to accommodation, EOMs full without nystagmus or diplopia, facial sensation intact to pinprick and light touch, no facial weakness, Brantley is midline, palate rises symmetrically to phonation OR gags are positive, shoulder shrug is 5 X 2, tongue protrudes midline. Cerebellar: finger to nose dysmetric left, tandem is normal. Sensory: intact to light touch, pinprick, and vibrations. Double simultaneous stimulation is intact. Motor Exam Upper Extremities: no drift or pronation, Gladis intact. Gas Distribution And Emergency Clerk are 5 X 2, tone is normal. No atrophy or fasciculations are noted visually. Motor Exam Lower Extremities: walks well on heels and toes but did not have him hop due to stroke. Gladis intact. Tone is normal. No atrophy or fasciculations are noted visually. Reflexes: Palmomental, snout and jaw jerk are negative. Triceps are 3 right and 2+ left, biceps are 3 right into left and brachioradialis are 2+ right into left bilaterally. Chris's is negative bilaterally. Knee jerks are 2+ to 3 and ankle jerks are 1 right and 0 left becoming trace to 1 with reinforcement and without clonus. Toes are downgoing bilaterally to Babinski testing. - Assessment Assessment Interval: Baseline - Level of Consciousness 1a. Level of Consciousness: alert - LOC Questions 1b. LOC Questions: answers correctly - LOC Command 1c. LOC Commands: performs tasks correctly - Best Gaze 2. Best Gaze: normal - Visual 3. Visual: complete hemianopia - Facial Palsy 4. Facial Palsy: normal symmetrical movement - Motor Arm 5b. Motor Arm Right: no drift - Motor Leg 6a. Motor Leg Left: no drift - Limb Ataxia 7. Limb Ataxia: absent - Sensory 8. Sensory: normal - Best Language 9. Best Language: no aphasia - Dysarthria 10. Dysarthria: normal - Extinction and Inattention 11. Extinction/Inattention: no abnormality Results - Laboratory Findings CBC and BMP: 01/07/18 04:59 01/07/18 04:59 Abnormal Lab Findings: Abnormal Labs 01/06/18 01/06/18 01/06/18 12:26 12:26 12:26 RBC 5.79 H Hgb 16.3 H Hct 49.7 H Lymph % (Auto) Lymph # Seg Neutrophils % PT 11.9 L INR 0.84 L Chloride Creatinine 1.6 H Glucose 288 H POC Glucose Hemoglobin A1c Triglycerides Cholesterol LDL Cholesterol Direct HDL Cholesterol 01/06/18 01/06/18 01/07/18 12:26 21:08 04:59 RBC 5.79 H Hgb 16.5 H Hct 49.9 H Lymph % (Auto) 12.0 L Lymph # 1.0 L Seg Neutrophils % 81.6 H PT INR Chloride Creatinine Glucose POC Glucose 210 H Hemoglobin A1c 8.7 H Triglycerides Cholesterol LDL Cholesterol Direct HDL Cholesterol 01/07/18 01/07/18 01/07/18 04:59 06:37 08:16 RBC Hgb Hct Lymph % (Auto) Lymph # Seg Neutrophils % PT INR Chloride 97.2 L Creatinine Glucose 299 H POC Glucose 292 H 263 H Hemoglobin A1c Triglycerides 176 H Cholesterol 251 H LDL Cholesterol Direct 205 H HDL Cholesterol 34 L 01/07/18 01/07/18 01/07/18 08:40 11:22 17:40 RBC Hgb Hct Lymph % (Auto) Lymph # Seg Neutrophils % PT INR Chloride Creatinine Glucose POC Glucose 292 H 245 H 237 H Hemoglobin A1c Triglycerides Cholesterol LDL Cholesterol Direct HDL Cholesterol Assessment and Plan Impression: 1. Embolic strokes 2. Hypertension 3. Hyperlipidemia 4. Possible sleep apnea Plan: 1. I stopped aspirin and started Plavix and stopped Eliquis since I recommend staying off Eliquis for a week because of his moderate to large size occipital infarct, to avoid hemorrhagic transformation per UpToDate reference source. If he cannot get Eliquis samples, he may need to be changed to warfarin. If changing to warfarin, begin it in 3 days since it will take longer to equilibrate. 2. Since his LDL is 205, I increased him to Lipitor 80 mg which he thinks was his dose previously but he has been off it for over a month. 3. Texted Dr. Camargo regarding these recommendations and expressed my concern about his blood pressure which seems to bounce up high (particularly the diastolic) between doses of anything he has been getting here and asking about putting him back on amlodipine and metoprolol which he was on as an outpatient. I later noted this was changed to Coreg and losartan. 4. Should have home sleep test for sleep apnea as an outpatient. 5. Will sign off for now. Call for any questions. Told him he should not drive until cleared by an manager cath lab who can better assess his visual yi. I would suggest waiting at least a month before doing the computerized yi. 45 minutes spent including review of MRI images with him and CT images. I explained he can get better from the stroke but he may still have some peripheral field cut from it permanently. Thank you for an interesting consultation on this unfortunate early 40s male.
[2018-01-08] MEDS: PERCOCET 5/325 PO PRN ×2 (08:53→23:03)
[2018-01-08] MEDS: HumaLOG SUB-Q SCH ×4 (08:54→22:48)
[2018-01-08] MEDS: COREG PO SCH ×2 (09:54→22:54)
[2018-01-08] MEDS: GLUCOPHAGE XR PO SCH (09:59)
[2018-01-08] MEDS: PLAVIX PO SCH (09:59)
[2018-01-08] MEDS: COZAAR PO SCH (09:59)
[2018-01-08] MEDS: SODIUM CHLORIDE FLUSH SYRINGE 10 ML IV SCH ×2 (10:09→22:50)
--- NOTE | 2018-01-08 10:31 | Progress Note ---
Assessment and Plan Acute CVA Refuses to take warfarin. per neuro: hold Eliquis for 1 week because of his moderate to large size occipital infarct, to avoid hemorrhagic transformation. Hypertension Ischemic Cardiomyopathy, EF 25-30% Hx of CAD [facility] 06/2017: patent LAD stent. Hx of Apical thrombus noncompliant with eliquis therapy as an outpatient. Diabetes mellitus Subjective Date of service: 01/08/18 Interval history: Patient complains of headaches this morning. He denies chest pain and shortness of breath. Objective Vital Signs Temp Pulse Pulse Resp Resp BP BP 01/08/18 09:59 96 H 148/80 01/08/18 08:58 94 H 17 01/08/18 08:53 17 01/08/18 07:20 98.1 F 106 H 20 159/115 01/08/18 04:34 97.9 F 59 L 18 131/100 01/08/18 00:05 98.6 F 103 H 20 126/83 01/07/18 23:08 20 01/07/18 23:02 20 01/07/18 22:59 86 136/82 01/07/18 22:35 70 20 01/07/18 20:50 99.2 F 53 L 20 136/82 01/07/18 19:24 70 01/07/18 18:50 144/101 01/07/18 17:53 19 01/07/18 17:51 75 149/105 01/07/18 17:45 139/105 01/07/18 17:44 75 155/106 01/07/18 13:32 01/07/18 13:25 93 H 01/07/18 13:02 98.5 F 112 H 18 161/114 01/07/18 11:40 112 H 161/114 01/07/18 11:39 112 H 116/114 BP Pulse Ox 01/08/18 09:59 01/08/18 08:58 01/08/18 08:53 01/08/18 07:20 97 01/08/18 04:34 95 01/08/18 00:05 90 01/07/18 23:08 01/07/18 23:02 01/07/18 22:59 01/07/18 22:35 01/07/18 20:50 93 01/07/18 19:24 01/07/18 18:50 01/07/18 17:53 01/07/18 17:51 01/07/18 17:45 128/100 01/07/18 17:44 149/105 01/07/18 13:32 95 01/07/18 13:25 126/85 01/07/18 13:02 96 01/07/18 11:40 01/07/18 11:39 - Physical Examination General: No Apparent Distress Cardiac: Positive: Reg Rate and Rhythm Lungs: Positive: Decreased Breath Sounds Neuro: Positive: Grossly Intact - Imaging and Cardiology EKG: report reviewed
--- NOTE | 2018-01-08 14:31 | Progress Note ---
Assessment and Plan - Acute ischemic cerebral infarct likely due to noncompliance with therapies: cont lipitor, start coumadin from tomorrow -Tobacco dependency/marijuana use: Counseling done - HTN urgency: prn iv antihypertensives - Uncontrolled DM: added ssi - Acute encephalopathy, poa, due to acute CVA - Ischemic Cardiomyopathy, EF 25-30%, cont medical Mx - Hx of CAD, [facility] 06/2017: patent LAD stent. - Hx of Apical thrombus in LV, noncompliant with eliquis therapy as an outpatient. 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 Hospitalist Physical GEN: WDWN, NAD, AWAKE, ALERT, ORIENTATED x3 HEENT: NCAT, EOMI, PERRL, OP Clear NECK: supple, no adenopathy, no thyromegaly, no JVD CVS/HEART: RRR, NORMAL S1S2, pulses present bilaterally CHEST/LUNGS: CTA B, Symmetrical chest expansion, good air entry bilaterally GI/Abdomen: soft, NTND, good bowel sounds, no guarding or rebound /Bladder: no suprapubic tenderness, no CVA or paraspinal tenderness EXT/Skin: no c/c/e, no obvious rash MSK: FROM x 4 Neuro: CN 2-12 grossly intact, pinpoint abn, gait abn, dysmetria Psych: calm Subjective Date of service: 01/08/18 Interval history: Patient was seen and examined. Overnight uneventful. Patient denies any chest pain, shortness breath, nausea/vomiting or severe headaches. Imaging, nursing note, chart, labs and old chart reviewed. Discussed with patient. Objective - Constitutional Vitals: Vital Signs - 12hr 01/08/18 01/08/18 01/08/18 04:34 07:20 08:53 Temperature 97.9 F 98.1 F Pulse Rate 59 L 106 H Pulse Rate [ Apical] Respiratory 18 20 17 Rate Blood Pressure 131/100 159/115 O2 Sat by Pulse 95 97 Oximetry 01/08/18 01/08/18 01/08/18 08:58 09:59 10:00 Temperature Pulse Rate 96 H 87 Pulse Rate [ 94 H Apical] Respiratory 17 Rate Blood Pressure 148/80 O2 Sat by Pulse 92 Oximetry 01/08/18 11:09 Temperature 98.0 F Pulse Rate 107 H Pulse Rate [ Apical] Respiratory 20 Rate Blood Pressure 140/101 O2 Sat by Pulse 91 Oximetry - Labs CBC & Chem 7: 01/07/18 04:59 01/07/18 04:59 Labs: Abnormal lab results 01/07/18 01/07/18 01/07/18 Range/Units 17:40 22:48 22:57 POC Glucose 237 H 249 H 268 H (70-105) 01/08/18 01/08/18 Range/Units 07:00 11:23 POC Glucose 213 H 276 H (70-105)
[2018-01-09] MEDS: PERCOCET 5/325 PO PRN ×2 (04:52→22:52)
[2018-01-09] MEDS: COZAAR PO SCH (09:19)
[2018-01-09] MEDS: COREG PO SCH ×2 (09:19→22:23)
[2018-01-09] MEDS: GLUCOPHAGE XR PO SCH (09:20)
[2018-01-09] MEDS: PLAVIX PO SCH (09:20)
[2018-01-09] MEDS: SODIUM CHLORIDE FLUSH SYRINGE 10 ML IV SCH ×2 (09:21→22:52)
[2018-01-09] MEDS: HumaLOG SUB-Q SCH ×4 (09:22→22:51)
--- NOTE | 2018-01-09 09:36 | Progress Note ---
Assessment and Plan Acute CVA pt has decided to initiate warfarin therapy. Hypertension Ischemic Cardiomyopathy, EF 25-30% Hx of CAD [facility] 06/2017: patent LAD stent. Hx of Apical thrombus noncompliant with eliquis therapy as an outpatient. Diabetes mellitus Recommendations: Patient is unable to afford Eliquis treatment and has decided to initiate Coumadin therapy. He promises to be compliant with the dietary restrictions and INR checks associated with Coumadin. Initiate Coumadin with a target INR of 2.0-3.0, to achieve therapeucity in about 4-5 days. Continue medical therapy for his coronary artery disease and ischemic cardiomyopathy. Subjective Date of service: 01/09/18 Interval history: No interval changes. Objective Vital Signs Temp Pulse Pulse Resp Resp BP BP 01/09/18 04:52 20 01/09/18 04:35 98.1 F 92 H 18 155/115 01/09/18 00:22 98.8 F 95 H 18 138/88 01/09/18 00:11 20 01/09/18 00:04 86 20 01/09/18 00:03 20 01/08/18 22:54 85 152/112 01/08/18 20:01 98.9 F 86 18 159/120 01/08/18 17:05 94 H 138/96 01/08/18 17:00 98 H 152/114 01/08/18 16:15 98.2 F 102 H 18 155/113 01/08/18 11:09 98.0 F 107 H 20 140/101 01/08/18 10:00 87 01/08/18 09:59 96 H 148/80 BP Pulse Ox 01/09/18 04:52 01/09/18 04:35 95 01/09/18 00:22 93 01/09/18 00:11 01/09/18 00:04 01/09/18 00:03 01/08/18 22:54 01/08/18 20:01 95 01/08/18 17:05 01/08/18 17:00 166/129 01/08/18 16:15 93 01/08/18 11:09 91 01/08/18 10:00 92 01/08/18 09:59 - Physical Examination General: No Apparent Distress Cardiac: Positive: Reg Rate and Rhythm Lungs: Positive: Decreased Breath Sounds Neuro: Positive: Grossly Intact Extremities: Absent: edema - Imaging and Cardiology EKG: report reviewed
[2018-01-09 16:42] LABS: INR 0.95 (0.87-1.13)
[2018-01-09] MEDS ORDERED: COUMADIN PO SCH ×2 (17:00→18:00)
[2018-01-09] MEDS: APRESOLINE IV PRN (17:06)
--- NOTE | 2018-01-09 17:57 | Progress Note ---
Assessment and Plan - Acute ischemic cerebral infarct likely due to noncompliance with therapies: cont aspirin, lipitor, start coumadin from today -Tobacco dependency/marijuana use: Counseling done - HTN urgency: prn iv antihypertensives - Uncontrolled DM: cont ssi, ADA diet - Acute encephalopathy, poa, due to acute CVA, resolved - Ischemic Cardiomyopathy, EF 25-30%, cont medical Mx - Hx of CAD, [facility] 06/2017: patent LAD stent. - Hx of Apical thrombus in LV, noncompliant with eliquis therapy as an outpatient. 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 Hospitalist Physical GEN: WDWN, NAD, AWAKE, ALERT, ORIENTATED x3 HEENT: NCAT, EOMI, PERRL, OP Clear NECK: supple, no adenopathy, no thyromegaly, no JVD CVS/HEART: RRR, NORMAL S1S2, pulses present bilaterally CHEST/LUNGS: CTA B, Symmetrical chest expansion, good air entry bilaterally GI/Abdomen: soft, NTND, good bowel sounds, no guarding or rebound /Bladder: no suprapubic tenderness, no CVA or paraspinal tenderness EXT/Skin: no c/c/e, no obvious rash MSK: FROM x 4 Neuro: CN 2-12 grossly intact, pinpoint abn, gait abn, dysmetria Psych: calm Subjective Date of service: 01/09/18 Interval history: Patient was seen and examined. Overnight uneventful. Patient denies any chest pain, shortness breath, nausea/vomiting or severe headaches. Imaging, nursing note, chart, labs and old chart reviewed. Discussed with patient. Objective - Constitutional Vitals: Vital Signs - 12hr 01/09/18 01/09/18 01/09/18 09:41 10:00 11:55 Temperature 98.6 F Pulse Rate 55 L 55 L Respiratory 18 18 Rate Blood Pressure Blood Pressure 136/105 [Right] O2 Sat by Pulse 95 95 97 Oximetry 01/09/18 01/09/18 12:32 17:06 Temperature 99.7 F H Pulse Rate 98 H Respiratory 20 Rate Blood Pressure 167/125 Blood Pressure 158/99 [Right] O2 Sat by Pulse 98 Oximetry - Labs CBC & Chem 7: 01/07/18 04:59 01/07/18 04:59 Labs: Abnormal lab results 01/08/18 01/09/18 01/09/18 Range/Units 21:59 12:05 16:50 POC Glucose 260 H 246 H 191 H (70-105)
[2018-01-10 05:51] LABS: INR 0.95 (0.87-1.13)
[2018-01-10] MEDS: COREG PO SCH ×2 (09:45→21:21)
[2018-01-10] MEDS: GLUCOPHAGE XR PO SCH (09:45)
[2018-01-10] MEDS: HumaLOG SUB-Q SCH ×4 (09:45→23:31)
[2018-01-10] MEDS: PLAVIX PO SCH (09:46)
[2018-01-10] MEDS: COZAAR PO SCH (09:46)
[2018-01-10] MEDS: SODIUM CHLORIDE FLUSH SYRINGE 10 ML IV SCH ×2 (09:46→23:31)
--- NOTE | 2018-01-10 10:32 | Progress Note ---
Assessment and Plan Acute CVA Patient is unable to afford Eliquis and has decided to initiate Coumadin therapy. He promises to be compliant with the dietary restrictions and INR checks associated with Coumadin. Hypertension Ischemic Cardiomyopathy, EF 25-30% Hx of CAD [facility] 06/2017: patent LAD stent. Hx of Apical thrombus noncompliant with eliquis therapy as an outpatient. Diabetes mellitus Recommendations: Continue Coumadin with a target INR of 2.0-3.0. Continue medical therapy for his coronary artery disease and ischemic cardiomyopathy. Subjective Date of service: 01/10/18 Interval history: No interval changes. Objective Vital Signs Temp Pulse Resp BP BP Pulse Ox 01/10/18 07:25 98.4 F 87 20 150/108 96 01/10/18 05:05 98.3 F 80 20 142/97 99 01/10/18 05:01 83 98 01/10/18 01:24 98.9 F 62 20 133/97 94 01/10/18 00:53 69 96 01/09/18 22:23 93 H 147/110 01/09/18 21:29 98.4 F 93 H 20 147/110 97 01/09/18 20:09 93 H 97 01/09/18 17:06 167/125 01/09/18 16:35 98.8 F 20 168/125 01/09/18 12:32 99.7 F H 98 H 20 158/99 98 01/09/18 11:55 97 - Physical Examination General: No Apparent Distress HEENT: Positive: PERRL Cardiac: Positive: Reg Rate and Rhythm Lungs: Positive: Decreased Breath Sounds Neuro: Positive: Grossly Intact Extremities: Absent: edema - Labs and Meds Coagulation 01/09/18 01/10/18 Range/Units 15:12 04:34 PT 13.1 13.1 (12.2-14.9) Sec. INR 0.95 0.95 (0.87-1.13) - Imaging and Cardiology EKG: report reviewed
[2018-01-10] MEDS ORDERED: COUMADIN PO SCH (12:02)
--- NOTE | 2018-01-10 15:16 | Progress Note ---
Assessment and Plan - Acute ischemic cerebral infarct likely due to noncompliance with therapies: cont aspirin, lipitor, started on coumadin, wait for INR to get therapeutic. -Tobacco dependency/marijuana use: Counseling done - HTN urgency: prn iv antihypertensives - Uncontrolled DM: cont ssi, ADA diet - Acute encephalopathy, poa, due to acute CVA, resolved - Ischemic Cardiomyopathy, EF 25-30%, cont medical Mx - Hx of CAD, [facility] 06/2017: patent LAD stent. - Hx of Apical thrombus in LV, noncompliant with eliquis therapy as an outpatient. 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 Hospitalist Physical GEN: WDWN, NAD, AWAKE, ALERT, ORIENTATED x3 HEENT: NCAT, EOMI, PERRL, OP Clear NECK: supple, no adenopathy, no thyromegaly, no JVD CVS/HEART: RRR, NORMAL S1S2, pulses present bilaterally CHEST/LUNGS: CTA B, Symmetrical chest expansion, good air entry bilaterally GI/Abdomen: soft, NTND, good bowel sounds, no guarding or rebound /Bladder: no suprapubic tenderness, no CVA or paraspinal tenderness EXT/Skin: no c/c/e, no obvious rash MSK: FROM x 4 Neuro: CN 2-12 grossly intact, pinpoint abn, gait abn, dysmetria Psych: calm Subjective Date of service: 01/10/18 Interval history: Patient was seen and examined. Overnight uneventful. Patient denies any chest pain, shortness breath, nausea/vomiting or severe headaches. Imaging, nursing note, chart, labs and old chart reviewed. Discussed with patient. Objective - Constitutional Vitals: Vital Signs - 12hr 01/10/18 01/10/18 01/10/18 05:01 05:05 07:25 Temperature 98.3 F 98.4 F Pulse Rate 83 80 87 Respiratory 20 20 Rate Blood Pressure 150/108 Blood Pressure 142/97 [Right] O2 Sat by Pulse 98 99 96 Oximetry 01/10/18 01/10/18 10:00 11:04 Temperature 97.9 F Pulse Rate 61 Respiratory 20 Rate Blood Pressure 110/80 Blood Pressure [Right] O2 Sat by Pulse 98 98 Oximetry - Labs CBC & Chem 7: 01/07/18 04:59 01/07/18 04:59 Labs: Abnormal lab results 01/09/18 01/09/18 01/10/18 Range/Units 16:50 22:43 06:05 POC Glucose 191 H 166 H 156 H (70-105)
[2018-01-10] MEDS: COUMADIN PO SCH (17:20)
[2018-01-10] MEDS: RESTORIL PO PRN (21:20)
[2018-01-10] MEDS: PERCOCET 5/325 PO PRN (21:21)
[2018-01-11 06:30] LABS: INR 1.32 (0.87-1.13)
--- NOTE | 2018-01-11 09:42 | Progress Note ---
Assessment and Plan Acute CVA Patient is unable to afford Eliquis and has decided to initiate Coumadin therapy. He promises to be compliant with the dietary restrictions and INR checks associated with Coumadin. Hypertension Ischemic Cardiomyopathy, EF 25-30% Hx of CAD [facility] 06/2017: patent LAD stent. Hx of Apical thrombus noncompliant with eliquis therapy as an outpatient. Diabetes mellitus Recommendations: Optimal BP control. Continue Coumadin with a target INR of 2.0-3.0. Continue medical therapy for his coronary artery disease and ischemic cardiomyopathy. Subjective Date of service: 01/11/18 Interval history: Patient is resting in bed comfortably. No reported cardiac events on telemetry monitoring. BP, currently, not optimal. Objective Vital Signs Temp Pulse Resp BP Pulse Ox 01/11/18 07:21 97.8 F 83 20 154/120 95 01/11/18 06:00 70 01/11/18 04:53 97.9 F 87 20 149/112 97 01/11/18 00:17 98.3 F 75 20 126/83 94 01/10/18 21:25 97.8 F 70 18 166/109 95 01/10/18 21:21 70 160/118 01/10/18 20:19 20 01/10/18 16:07 98.2 F 82 20 146/107 97 01/10/18 11:04 97.9 F 61 20 110/80 98 01/10/18 10:00 98 - Physical Examination General: No Apparent Distress Cardiac: Positive: Reg Rate and Rhythm - Labs and Meds Coagulation 01/11/18 Range/Units 05:05 PT 17.1 H (12.2-14.9) Sec. INR 1.32 H (0.87-1.13) - Imaging and Cardiology EKG: report reviewed
[2018-01-11] MEDS: HumaLOG SUB-Q SCH ×4 (10:39→22:43)
[2018-01-11] MEDS: COREG PO SCH ×2 (10:40→22:41)
[2018-01-11] MEDS: COZAAR PO SCH (10:40)
[2018-01-11] MEDS: PLAVIX PO SCH (10:40)
[2018-01-11] MEDS: SODIUM CHLORIDE FLUSH SYRINGE 10 ML IV SCH ×2 (10:43→22:45)
--- NOTE | 2018-01-11 14:59 | Progress Note ---
Assessment and Plan - Acute ischemic cerebral infarct likely due to noncompliance with therapies: cont aspirin, lipitor, started on coumadin, wait for INR to get therapeutic. -Tobacco dependency/marijuana use: Counseling done - HTN urgency: prn iv antihypertensives - Uncontrolled DM: cont ssi, ADA diet - Acute encephalopathy, poa, due to acute CVA, resolved - Ischemic Cardiomyopathy, EF 25-30%, cont medical Mx - Hx of CAD, [facility] 06/2017: patent LAD stent. - Hx of Apical thrombus in LV, noncompliant with eliquis therapy as an outpatient. started on coumadin, follow INR - DVT prophylaxis: SCD, coumadin Brief history: Patient is a 42-year-old man with a history of hypertension, tobacco dependency , coronary artery disease status post stent, CVA with left sided facial deficit , diabetes mellitus2 and left thrombus in the left ventricle apex on Eliquis since 2016 when he had the cardiac stent who presented to [facility] with altered mental status or blindness and was admitted for acute CVA. Hospitalist Physical GEN: WDWN, NAD, AWAKE, ALERT, ORIENTATED x3 HEENT: NCAT, EOMI, PERRL, OP Clear NECK: supple, no adenopathy, no thyromegaly, no JVD CVS/HEART: RRR, NORMAL S1S2, pulses present bilaterally CHEST/LUNGS: CTA B, Symmetrical chest expansion, good air entry bilaterally GI/Abdomen: soft, NTND, good bowel sounds, no guarding or rebound /Bladder: no suprapubic tenderness, no CVA or paraspinal tenderness EXT/Skin: no c/c/e, no obvious rash MSK: FROM x 4 Neuro: CN 2-12 grossly intact, pinpoint abn, gait abn, dysmetria Psych: calm Subjective Date of service: 01/11/18 Interval history: Patient was seen and examined. Overnight uneventful. Patient denies any chest pain, shortness breath, nausea/vomiting or severe headaches. Imaging, nursing note, chart, labs and old chart reviewed. Discussed with patient. Objective - Constitutional Vitals: Vital Signs - 12hr 01/11/18 01/11/18 01/11/18 04:53 06:00 07:21 Temperature 97.9 F 97.8 F Pulse Rate 87 70 83 Respiratory 20 20 Rate Blood Pressure 149/112 154/120 O2 Sat by Pulse 97 95 Oximetry 01/11/18 01/11/18 10:40 11:21 Temperature 98.0 F Pulse Rate 94 H Respiratory 20 Rate Blood Pressure 156/105 159/118 O2 Sat by Pulse 97 Oximetry - Labs CBC & Chem 7: 01/07/18 04:59 01/07/18 04:59 Labs: Abnormal lab results 01/10/18 01/10/18 01/11/18 Range/Units 12:59 22:51 05:05 PT 17.1 H (12.2-14.9) Sec. INR 1.32 H (0.87-1.13) POC Glucose 212 H 174 H (70-105) 01/11/18 01/11/18 Range/Units 06:15 09:35 PT (12.2-14.9) Sec. INR (0.87-1.13) POC Glucose 213 H 179 H (70-105)
[2018-01-11] MEDS: GLUCOPHAGE XR PO SCH (15:32)
[2018-01-11] MEDS: COUMADIN PO SCH (17:03)
[2018-01-12 05:25] LABS: INR 1.8 (0.87-1.13)
[2018-01-12] MEDS: HumaLOG SUB-Q SCH ×4 (08:29→21:45)
[2018-01-12] MEDS: GLUCOPHAGE XR PO SCH (08:30)
[2018-01-12] MEDS: APRESOLINE IV PRN ×2 (09:31→19:02)
[2018-01-12] MEDS: SODIUM CHLORIDE FLUSH SYRINGE 10 ML IV SCH ×2 (10:59→21:46)
[2018-01-12] MEDS: COREG PO SCH ×2 (10:59→21:46)
[2018-01-12] MEDS: COZAAR PO SCH (10:59)
[2018-01-12] MEDS: PLAVIX PO SCH (10:59)
--- NOTE | 2018-01-12 12:51 | Progress Note ---
Assessment and Plan - Acute ischemic cerebral infarct likely due to noncompliance with therapies: cont aspirin, lipitor, started on coumadin, wait for INR to get therapeutic. -Tobacco dependency/marijuana use: Counseling done - HTN urgency: prn iv antihypertensives - Uncontrolled DM: cont ssi, ADA diet - Acute encephalopathy, poa, due to acute CVA, resolved - Ischemic Cardiomyopathy, EF 25-30%, cont medical Mx - Hx of CAD, [facility] 06/2017: patent LAD stent. - Hx of Apical thrombus in LV, noncompliant with eliquis therapy as an outpatient. started on coumadin, follow INR - DVT prophylaxis: SCD, coumadin Brief history: Patient is a 42-year-old man with a history of hypertension, tobacco dependency , coronary artery disease status post stent, CVA with left sided facial deficit , diabetes mellitus2 and left thrombus in the left ventricle apex on Eliquis since 2016 when he had the cardiac stent who presented to [facility] with altered mental status or blindness and was admitted for acute CVA. Hospitalist Physical GEN: WDWN, NAD, AWAKE, ALERT, ORIENTATED x3 HEENT: NCAT, EOMI, PERRL, OP Clear NECK: supple, no adenopathy, no thyromegaly, no JVD CVS/HEART: RRR, NORMAL S1S2, pulses present bilaterally CHEST/LUNGS: CTA B, Symmetrical chest expansion, good air entry bilaterally GI/Abdomen: soft, NTND, good bowel sounds, no guarding or rebound /Bladder: no suprapubic tenderness, no CVA or paraspinal tenderness EXT/Skin: no c/c/e, no obvious rash MSK: FROM x 4 Neuro: CN 2-12 grossly intact, pinpoint abn, gait abn, dysmetria Psych: calm Subjective Date of service: 01/12/18 Interval history: Patient was seen and examined. Overnight uneventful. Patient denies any chest pain, shortness breath, nausea/vomiting or severe headaches. Imaging, nursing note, chart, labs and old chart reviewed. Discussed with patient. Objective - Constitutional Vitals: Vital Signs - 12hr 01/12/18 01/12/18 01/12/18 04:48 08:26 09:31 Temperature 98.0 F 98.6 F Pulse Rate 87 72 72 Respiratory 18 18 Rate Blood Pressure 142/103 149/121 Blood Pressure 149/121 [Right] O2 Sat by Pulse 99 98 Oximetry - Labs CBC & Chem 7: 01/07/18 04:59 01/07/18 04:59 Labs: Abnormal lab results 01/11/18 01/11/18 01/11/18 Range/Units 11:28 16:00 21:12 PT (12.2-14.9) Sec. INR (0.87-1.13) POC Glucose 206 H 222 H 181 H (70-105) 01/12/18 01/12/18 01/12/18 Range/Units 04:49 06:27 11:33 PT 22.0 H (12.2-14.9) Sec. INR 1.80 H (0.87-1.13) POC Glucose 164 H 169 H (70-105)
--- NOTE | 2018-01-12 13:33 | Progress Note ---
Assessment and Plan - Patient Problems (1) CVA (cerebral vascular accident) Current Visit: Yes Status: Acute Qualifiers: CVA mechanism: thrombosis Precerebral and cerebral artery: cerebellar artery Laterality of affected vessel: right Qualified Code(s): I63.341 - 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 Plan to address problem: Coumadin initiated for CVA prophylaxis, current INR is 1.8. Patient is stable for discharge once INR is 2.0 or greater. Subjective Date of service: 01/12/18 Interval history: Patient is comfortable, looks and feels better. INR is 1.8. Objective Vital Signs Temp Pulse Resp Resp BP BP Pulse Ox 01/12/18 09:31 72 149/121 01/12/18 08:26 98.6 F 72 18 149/121 98 01/12/18 04:48 98.0 F 87 18 142/103 99 01/12/18 00:15 98.1 F 87 18 146/111 97 01/11/18 22:00 16 01/11/18 19:54 98.5 F 82 18 143/99 98 01/11/18 16:30 98.4 F 76 20 140/96 97 - Physical Examination General: No Apparent Distress HEENT: Positive: PERRL Neck: Positive: neck supple Cardiac: Positive: Reg Rate and Rhythm Lungs: Positive: Decreased Breath Sounds Neuro: Positive: Grossly Intact Abdomen: Positive: Soft Skin: Positive: Clear Extremities: Absent: edema - Labs and Meds Coagulation 01/12/18 Range/Units 04:49 PT 22.0 H (12.2-14.9) Sec. INR 1.80 H (0.87-1.13) - Imaging and Cardiology EKG: report reviewed
[2018-01-12] MEDS: COUMADIN PO SCH (17:52)
[2018-01-13] MEDS: HumaLOG SUB-Q SCH ×3 (08:28→17:08)
[2018-01-13] MEDS: GLUCOPHAGE XR PO SCH (09:53)
[2018-01-13 09:57] VITALS: BP 125/89
[2018-01-13] MEDS: COREG PO SCH (10:53)
[2018-01-13] MEDS: PLAVIX PO SCH (10:54)
[2018-01-13] MEDS: COZAAR PO SCH (10:54)
[2018-01-13] MEDS: SODIUM CHLORIDE FLUSH SYRINGE 10 ML IV SCH (10:55)
--- NOTE | 2018-01-13 13:26 | Discharge Summary ---
Providers - Providers Date of Admission: 01/06/18 14:32 Date of discharge: 01/13/18 Attending physician: TABITHA BELL 01/06/18 16:33 Consult to Physician [CONS] Routine Comment: Consulting Provider: MARIA INES SAAB Physician Instructions: Reason For Exam: cva 01/06/18 16:41 Occupational Therapy Evaluate and Treat [CONS] Routine Comment: Reason For Exam: Neuro deficits Physical Therapy Evaluation and Treat [CONS] Routine Comment: Reason For Exam: Neuro deficits Primary care physician: BLOCKMAN Hospitalization Condition: Stable Pertinent studies: Head CT carotod doppler MRI/MRA brain 2d echo Hospital course: Brief history: Patient is a 42-year-old man with a history of hypertension, tobacco dependency , coronary artery disease status post stent, CVA with left sided facial deficit , diabetes mellitus2 and thrombus in the left ventricle apex on Eliquis since 2016 when he had the cardiac stent who presented to [facility] with altered mental status, left eye blindness and was admitted for acute CVA. CT showed what seemed to be an old right cerebellar infarct and possibly hypodensity in the right occipital lobe. MRI shows acute cerebellar infarct on the right as well as acute right occipital lobe infarct extending into corpus callosum posteriorly and FLAIR showed older embolic appearing frontal parietal small strokes. 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 He was aware of previous strokes. He stated he has not been able to afford Eliquis but has been getting samples of it from the cardiology office. He has been taking 81 mg aspirin about every other day, and was taking Plavix generic. His 2d echo showed 20-25% Ef with persistent large LV thrombus. He was counselled for medication compliance and started on coumadin for anticoagulation. He was monitored for any neurological change while started back on coumadin, his INR was followed and was discharged in stable condition when INR was therapeutic. He will f/u at cardiology office to check his INR. Discharge diagnosis: - Acute ischemic cerebral infarct likely due to noncompliance with therapies: cont plavix (aspirin stopped by neurologist), lipitor, started on coumadin, follow INR outpt. -Tobacco dependency/marijuana use: Counseling done - HTN urgency: BP stable on current meds - Uncontrolled DM: ADA diet, cont oral hypoglycemics - Acute encephalopathy, poa, due to acute CVA, resolved - Ischemic Cardiomyopathy, EF 25-30%, cont medical Mx - Hx of CAD, [facility] 06/2017: patent LAD stent. - Hx of Apical thrombus in LV, noncompliant with eliquis therapy as an outpatient due to finance issue. started on coumadin, follow INR outpt - DVT prophylaxis: SCD, coumadin Hospitalist Physical GEN: WDWN, NAD, AWAKE, ALERT, ORIENTATED x3 HEENT: NCAT, EOMI, PERRL, OP Clear NECK: supple, no adenopathy, no thyromegaly, no JVD CVS/HEART: RRR, NORMAL S1S2, pulses present bilaterally CHEST/LUNGS: CTA B, Symmetrical chest expansion, good air entry bilaterally GI/Abdomen: soft, NTND, good bowel sounds, no guarding or rebound /Bladder: no suprapubic tenderness, no CVA or paraspinal tenderness EXT/Skin: no c/c/e, no obvious rash MSK: FROM x 4 Neuro: Left homonymous hemianopia, POA, Psych: calm Disposition: - TO HOME OR SELFCARE Time spent for discharge: 32 minutes Core Measure Documentation - Palliative Care Palliative Care/ Comfort Measures: Not Applicable - Core Measures Any of the following diagnoses?: heart failure - Heart Failure Discharge Requirements MAURY/ARB for LVSD if EF <40%: Yes Beta michele at discharge: Yes Exam - Constitutional Vitals: Temp Pulse Resp BP Pulse Ox 98.2 F 86 20 125/89 97 01/13/18 08:33 01/13/18 08:33 01/13/18 08:33 01/13/18 08:33 01/13/18 08:33 Plan Activity: advance as tolerated Weight Bearing Status: Non-Weight Bearing Diet: low fat, low salt Additional Instructions: Avoid food rich in Vit K. F/u INR at cardiology office Follow up with: PORTILLO FOFANA MD [Primary Care Provider] - 7 Days SCOTTY ENRIQUEZ MD [Staff Physician] - 01/16/18 3:20 pm Forms: Warfarin Discharge Instruction Prescriptions: AtorvaSTATin [Lipitor] 40 mg PO QHS #30 tablet Carvedilol [Coreg] 6.25 mg PO BID #60 tablet Clopidogrel [Plavix] 75 mg PO QDAY #30 tablet Losartan [Cozaar] 100 mg PO QDAY #30 tablet metFORMIN XR [Glucophage XR] 1,000 mg PO QDDIAB #60 tablet Warfarin [Coumadin] 5 mg PO DAILY@1700 #30 tablet
--- NOTE | 2018-01-13 13:26 | Progress Note ---
Assessment and Plan - Patient Problems (1) CVA (cerebral vascular accident) Current Visit: Yes Status: Acute Qualifiers: Qualified Code(s): I63.341 - 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 Plan to address problem: Coumadin initiated for CVA prophylaxis, current INR is 2.0. Patient is stable for cardiac discharge once INR is 2.0 or greater. I have recommended that he follows up in 5-7 days for recheck of his INR. Subjective Date of service: 01/13/18 Interval history: Patient is comfortable, looks and feels better. INR is 2.0. Objective Vital Signs Temp Pulse Resp BP BP Pulse Ox 01/13/18 08:33 98.2 F 86 20 125/89 97 01/13/18 05:54 98.2 F 87 20 131/91 97 01/12/18 23:26 98.6 F 80 18 121/77 92 01/12/18 20:19 98.6 F 79 20 122/84 95 01/12/18 19:37 102 H 01/12/18 17:43 97.8 F 77 146/104 01/12/18 16:12 84 96 - Physical Examination General: No Apparent Distress HEENT: Positive: PERRL Neck: Positive: neck supple Cardiac: Positive: Reg Rate and Rhythm Lungs: Positive: Decreased Breath Sounds Neuro: Positive: Grossly Intact Abdomen: Positive: Soft Skin: Positive: Clear Extremities: Absent: edema - Labs and Meds Coagulation 01/13/18 Range/Units 05:44 PT 24.0 H (12.2-14.9) Sec. INR 2.00 H (0.87-1.13) - Imaging and Cardiology EKG: report reviewed
[2018-01-13] MEDS: COUMADIN PO SCH (17:09)
== END 2018-01-13 18:08 | disposition home or self-care (01) | DRG 64 ==
LOC: ED 11:59 → 4A 14:32
PROVIDERS: ADMIT Internal Medicine; ATTEND Internal Medicine
DX: I63.341 Cerebral infarction due to thrombosis of right cerebellar artery (principal); G93.40 Encephalopathy, unspecified; I42.0 Dilated cardiomyopathy; I16.0 Hypertensive urgency; I10 Essential (primary) hypertension; I25.2 Old myocardial infarction; E11.9 Type 2 diabetes mellitus without complications; I25.10 Atherosclerotic heart disease of native coronary artery without angina pectoris; Z95.5 Presence of coronary angioplasty implant and graft; Z87.891 Personal history of nicotine dependence
CPT/HCPCS: 36415; 70450; 70544; 70551; 80048; 80053; 80061; 80307; 81001; 82962; 83036; 84484; 85025; 85610; 85670; 85730; 93005; 93010; 93306; 93880; 94760; 96374; 99406; A9270-GY; J0360; J1644; J1815